=== PATIENT | female | born 1975 | race Caucasian/White ===

== ENCOUNTER 2016-09-26 11:13 | Emergency (ER) | payer MEDICAID ==
[2016-09-26 11:19] VITALS: BP 124/53; PULSE 73; RESP 14; TEMP 97.7; O2SAT 97
--- NOTE | 2016-09-26 13:44 | EDPHY ---
H & P Time Seen by Provider: 09/26/16 12:44 HPI/ROS: CHIEF COMPLAINT: right middle finger pain HISTORY OF PRESENT ILLNESS: 40-year-old female presents with right middle finger pain x2 weeks. Patient reports it started as a hangnail. It has come and gone. Today and yesterday it has been worse and constant with throbbing and pressure. Patient noticed purulent drainage today. She denies fevers or chills, no numbness or tingling in her finger, no other complaints. Tetanus is up-to-date. Smoking Status: Never smoked Physical Exam: GEN: Awake, alert, oriented, no acute distress RESP: nl resp effort MSK: Right middle finger with full active flexion and extension against resistance, 2 point discrimination intact, paronychia noted to medial aspect of left middle fingernail Constitutional: Initial Vital Signs Temperature (C) 36.5 C 09/26/16 11:15 Heart Rate 73 09/26/16 11:15 Respiratory Rate 14 09/26/16 11:15 Blood Pressure 124/53 H 09/26/16 11:15 O2 Sat (%) 97 09/26/16 11:15 O2 Delivery Mode Room Air Home Medications: Medication Instructions Recorded Cephalexin [Keflex] 500 mg PO QID 5 Days 09/26/16 MDM/Departure - MDM Procedures: Procedure: Incision and Drainage abscess. The patient's abscess was located on the right middle finger. Risks, benefits, alternatives discussed with the patient and consent obtained. The area was prepped and draped in sterile fashion. The patient received local anesthesia with 1% lidocaine with epinephrine. The abscess was incised with a #11 blade and purulent drainage was expressed. The patient tolerated the procedure well. The procedure was performed by myself. - Depart Disposition: Home, Routine, Self-Care Clinical Impression: Paronychia of right middle finger Condition: Good Instructions: Paronychia (ED) Additional Instructions: Take 500 mg of cephalexin 4 times a day for 5 days. Warm soaks 4 to 5 times a day for 10 minutes. Return for any increased pain, redness, swelling. Prescriptions: Cephalexin [Keflex] 500 mg PO QID 5 Days Referrals: [facility],. [Clinic] - Follow Up Only If Needed
== END 2016-09-26 13:59 | disposition home or self-care (01) ==
PROC: 0H9FXZZ Drainage of Right Hand Skin, External Approach (ICD-10-PCS; principal; 2016-09-26)
DX: L03.011 Cellulitis of right finger (principal)